=== PATIENT | male | born 1955 | race Caucasian/White ===

== ENCOUNTER 2018-10-17 19:06 | Emergency (ER) | payer BC ==
[2018-10-17] MEDS ORDERED: NEOMYCIN/POLYMYXIN B SULF/HC 10ML BTL OT ONE (19:34)
--- NOTE | 2018-10-17 19:35 | Emergency Department Record ---
History of Present Illness - General Chief complaint: ENT Stated complaint: EAR PAIN Time Seen by Provider: 10/17/18 19:24 Source: Patient Mode of Arrival: Ambulatory Limitations: No limitations - History of Present Illness Initial comments: 63 yo male presents to ED for evaluation of left ear pain for the past 48 hours. Patient reports that he wears hearing aids, reports the cap of his left hearing aid went missing 2 days ago, may be have been left in the ear canal. Patient denies change in hearing or discharge from the ear. Patient denies fevers, chilsl, or recent illness. MD complaint: Ear pain Onset/Timin -: Days(s) Location: L ear Severity scale (1-10): 7 Quality: Aching, Dull, Sharp Consistency: Constant Improves with: Pressure Worsens with: None Associated Symptoms: Other - Related Data Home Medications Medication Instructions Recorded Confirmed Last Taken Atorvastatin Calcium [Lipitor] 20 mg PO DAILY 10/17/18 10/17/18 10/17/18 Meloxicam [Mobic] 15 mg PO DAILY 10/17/18 10/17/18 10/17/18 Mirabegron [Myrbetriq] 50 mg PO DAILY 10/17/18 10/17/18 10/17/18 Tadalafil [Cialis] 5 mg PO DAILY 10/17/18 10/17/18 10/17/18 Allergies Allergy/AdvReac Type Severity Reaction Status Date / Time No Known Drug Allergies Allergy Verified 10/17/18 19:13 Travel Screening - Travel/Exposure Within Last 30 Days Have you traveled within the last 30 days?: No - Travel/Exposure Within Last Year Have you traveled outside the [place] in the last year?: No - Additonal Travel Details Have you been exposed to anyone with a communicable illness?: No - Travel Symptoms Symptom Screening: None Review of Systems Constitutional: Denies: Chills, Fever, Malaise, Night sweats Eyes: Denies: Eye discharge, Eye pain ENT: Reports: Ear pain. Denies: Congestion, Epistaxis Respiratory: Denies: Cough, Dyspnea Cardiovascular: Denies: Chest pain, Dyspnea on exertion Endocrine: Denies: Fatigue, Heat or cold intolerance Gastrointestinal: Denies: Abdominal pain, Nausea, Vomiting Genitourinary: Denies: Incontinence, Retention Musculoskeletal: Denies: Arthralgia, Back pain Skin: Denies: Bruising, Change in color Neurological: Denies: Abnormal gait, Confusion, Headache, Seizure Psychiatric: Denies: Anxiety Hematological/Lymphatic: Denies: Anemia, Blood Clots Past Medical History - SOCIAL HISTORY Smoking Status: Never smoker Alcohol Use: Occasional Drug Use: None - RESPIRATORY Hx Respiratory Disorders: No - CARDIOVASCULAR Hx Cardio Disorders: Yes Hx Hypertension: Yes - NEURO Hx Neuro Disorders: No - GI Hx GI Disorders: No - Hx Genitourinary Disorders: No - ENDOCRINE Hx Endocrine Disorders: No - MUSCULOSKELETAL Hx Musculoskeletal Disorders: Yes Hx Back Injury: Yes - PSYCH Hx Psych Problems: No - HEMATOLOGY/ONCOLOGY Hx Hematology/Oncology Disorders: No Family Medical History Any Significant Family History?: No Physical Exam - General General Appearance: Alert, Oriented x3, Cooperative, Mild distress Limitations: No limitations - Head Head exam: Atraumatic, Normocephalic, Normal inspection Head exam detail: negative: Abrasion, Contusion, Mallory's sign, General tenderness, Hematoma, Laceration - Eye Eye exam: Normal appearance. negative: Conjunctival injection, Periorbital swelling, Periorbital tenderness, Scleral icterus - ENT Ear exam: External canal tenderness, Other (Clear plastic FB identified in the left ear canal). negative: Auricular hematoma, Auricular trauma Nasal Exam: negative: Active bleeding, Discharge, Dried blood, Foreign body Mouth exam: negative: Drooling, Laceration, Muffled voice, Tongue elevation - Neck Neck exam: Normal inspection. negative: Meningismus, Tenderness - Respiratory Respiratory exam: Normal lung sounds bilaterally. negative: Rales, Respiratory distress, Rhonchi, Stridor - Cardiovascular Cardiovascular Exam: Regular rate, Normal rhythm, Normal heart sounds - GI/Abdominal GI/Abdominal exam: Soft. negative: Rebound, Rigid, Tenderness - Rectal Rectal exam: Deferred - exam: Deferred - Extremities Extremities exam: Normal inspection. negative: Pedal edema, Tenderness - Back Back exam: Denies: CVA tenderness (R), CVA tenderness (L) - Neurological Neurological exam: Alert, Normal gait, Oriented X3 - Psychiatric Psychiatric exam: Normal affect, Normal mood - Skin Skin exam: Normal color. negative: Abrasion Type of lesion: negative: abrasion Course Vital Signs 10/17/18 19:13 Temperature 98.1 F Pulse Rate [ 82 Pulse Ox Probe] Respiratory 20 Rate Blood Pressure 126/74 [Left Arm] Pulse Ox 98 - Reevaluation(s) Reevaluation #1: 10/17/18 20:32 FB was removed from the left ear canal without complications. There is irritation from the FB being present for 48 hours within the ear canal. Will prescribe Cortisporin drops to initiate if the patient's ear pain symptoms fail to resolve in 24 hours or if symptoms worsen. Patient appears stable for discharge at this time. Procedures - Foreign Body Removal Ear Location: Ear canal (L) Foreign Body Suspected: Plastic bead/other plastic Foreign Body Removed: Yes Foreign Body Removal Technique: Curette Tympanic Membrane Intact: Yes Patient Tolerated Procedure: Good Complications: None Disposition Disposition: Discharge Clinical Impression: Ear foreign body Qualifiers: Encounter type: initial encounter Laterality: left Qualified Code(s): T16.2XXA - Foreign body in left ear, initial encounter Disposition: Home, Self-Care Condition: (2) Stable Instructions: Ear Foreign Body (ED) Additional Instructions: Return to ED if your symptoms worsen or if you have any concerns. Cortisporin qttps as directed. Follow-up with your family doctor in 3-5 days as directed. Forms: Patient Portal Access Time of Disposition: 19:34 Quality - Quality Measures Quality Measures: N/A - Blood Pressure Screening Does Patient Have Any of the Following: No Blood Pressure Classification: Normal BP Reading Systolic Measurement: 113 Diastolic Measurement: 73 Screening for High Blood Pressure: < Normal BP, F/U Not Required > [[id number]]
== END 2018-10-17 19:48 | disposition home or self-care (01) ==
LOC: ER 19:06
DX: T16.2XXA Foreign body in left ear, initial encounter (principal); I10 Essential (primary) hypertension
CPT/HCPCS: 69200; 99282; 99283